=== PATIENT | female | born 1935 | race Caucasian/White ===

== ENCOUNTER 2016-07-06 01:43 | Inpatient (IN) | payer OTHER, MEDICARE ==
[~2016-07-06] VITALS: Ht 142.2 cm; Wt 62.6 kg
[~2016-07-06 01:43] MED LIST: BRISDELLE7.5 M1 PO; CALCIUM 500 +1 EAC5 PO; CARVEDILOL12.5 M1 PO; CO Q-10100 MG PO; CRESTOR40 M2 PO; IBUPROFEN600 M1 PO; LASIX20 M1 PO; MECLIZINE HCL25 MG PO; MIRALAX17 G1 PO; NASONEX17 GM NAS; NEXIUM40 M1 PO; NORVASC5 M1 PO; POTASSIUM CHLO20 ME2 PO; TAMOXIFEN CITRA20 M1 PO; VITAMIN D400 UNIT PO
--- NOTE | 2016-07-06 10:48 | RADIOLOGY REPORT ---
EXAMINATION: XR LUMBAR SPINE CLINICAL INFORMATION: Localization of L3-L4 and L4-L5 and OR. COMPARISON: Lumbar spine films dated 03/30/2016. TECHNIQUE: Lateral views of the lumbar spine were performed in the operating room. FINDINGS: Film 1 demonstrates a surgical marker pointing to the superior margin of the L3 spinous process. Film 2 demonstrates a surgical instrument projecting over the L3-L4 facet joint. IMPRESSION: Localization of the L3 and L3-L4 level. No images demonstrate localization of L4-L5.
--- NOTE | 2016-07-06 13:20 | Operative Report ---
Operative/Inv Procedure Report Surgery Date: 07/06/16 Name of Procedure: Resection of L45 synovial cyst. L3 L4 L5 far lateral laminectomies, L3 L4 L5 bilateral osteotomies, L3 4 TLIF, L4 5 TLIF. Insertion of L3 4 interbody 4 web cage titanium. Insertion of L4 5 4 web Cage titanium. L3 4 L4 5 posterior lateral arthrodesis utilizing autologous bone graft and Iliac crest graft aspirate. L3 4 L4 5 posterior lateral segmental instrumentation utilizing Synthes titanium screws and rods. Procedure performed stereotactically. Right iliac crest bone biopsy. Pre-Operative Diagnosis: L3 4 4 5 stenosis spondylosis spondylolisthesis. Post-Operative Diagnosis: Same Estimated Blood Loss: 400cc Surgeon/Customer Advisor Specialist: JAKOB IRVIN MD AND REINIER CHANG MD Anesthesia: general endotracheal tube Operative/Procedure Note Note: Patient was brought to the operating room and undergoing endotracheal intubation Martin catheterizations Venodyne's were placed both lower extremities. The patient was placed on a Marcelo frame prone all bony prominences well-padded. Back was kept flat. The back was washed with Betadine solution and Betadine soap and draped in usual sterile fashion. X-ray was for localization. An incision was made in the midline and developed down through the length subcutaneous teeniest tissues the paraspinal muscles were then mobilized out laterally to the level of the transverse processes exposing the L3-L4 and L5 spinous processes completely the paraspinal muscles were mobilized out laterally to the level of the transverse processes now beyond the lateral masses again exposing the L3 through L5 transverse processes x-ray was used for confirmation. Working with a Misonix bone scalpel the lamina were removed at L3-L4 and L5 bilaterally including the pars and complete foraminotomies were now made, including osteotomies bilaterally at L3 4 and L4 5. Synovial cyst was away and resected at L4 5's on the right side. Having decompressed the ligamentum flavum was now lifted and completely unroofed off the dura both superiorly medially and laterally freeing up the nerve roots at the L3-L4 and the L5 level. The bone was harvested morcellized and later use in the arthrodesis for the most through separate fascial incision the right iliac crest graft was accessed and a bone biopsy was now performed utilizing a large bore needle which was sent off to pathology furthermore iliac crest graft aspirate was now removed and taken and mixed in with the autologous bone graft for later usage in the arthrodesis. At this point the disc space was entered with an 11 blade and removed with a combination of straight and curved curettes at both L3 4 and L4 5 level. The cartilaginous endplates were removed at L3 4 L4 5. The bony endplates were now partially decorticated at both levels. Morselized bone was now used to fill in the space at L3 4 and L4 5 and pack in autologous bone graft . At L3 4 level a 4-Web titanium cage was centrally filled with autologous bone graft and tapped across the midline. At the L4 5 level a similar titanium cage 10mm in height was tapped into the interspace across the midline. At this point the transverse processes were decorticated bilaterally and autologous bone graft was packed posterolaterally. He was accomplished at the O arm was brought into position and the stereotactic coordinates were obtained. Under stereotactic guidance the L3-L4 and the L5 pedicles were accessed utilizing Synthes titanium screws 45 mm in length at L3 and 40 mm in length at L4 and L5 bilaterally 6.5 mm diameter. The polyaxial screws axial screws were now checked for the elective physiological potential and found to stimulate above 30 mA. At this 0.2 rods were used to connect the polyaxial screws under compression. Copious amounts of irrigation were used a large round drain was then removed through separate stab incision superiorly and secured to the skin. Vancomycin powder was was used to sprinkled across the wound. A piece of DuraGen was placed epidurally to the patient's very thinned out dura but no CSF leakage was observed. The paraspinal muscles and fascia were reapproximated utilizing 0 Vicryls, inverted 3-0 Vicryl subcutaneous teeniest tissues and francisca for the skin. Patient was taken extubated to recovery room having tolerated procedure well.
--- NOTE | 2016-07-06 13:24 | Operative Report ---
Operative/Inv Procedure Report Surgery Date: 07/06/16 Name of Procedure: 1. Bilateral L3, L4 pars osteotomies for correction of deformity 2. Left L3 4, L4 5 far lateral discectomies 3. L3 4, L4 5 transforaminal lumbar interbody fusion with titanium for web interbody cage, autograft 4. Nonsegmental L3-L5 posterior lateral arthrodesis with Synthes Expedia pedicle screws and rods, autograft, master graft 5. O arm neuro navigation 6. Intraoperative Right iliac crest bone marrow biopsy per hematology oncology request 7. Right iliac crest bone marrow aspiration 8. Resection of L4 5 synovial cyst Pre-Operative Diagnosis: L3 4, L4 5 spondylolisthesis with stenosis Post-Operative Diagnosis: Same Estimated Blood Loss: 650cc Surgeon/Table Games Shift Manager: BERNARDO MARIN,Lon Gardiner M.D. Anesthesia: general endotracheal tube Monitors: Neurophysiologic monitoring IV Fluids: 2 L crystalloid Implants: Synthes titanium with interbody cages, Expedia pedicle screws and rods Urine Output: 150 mL Drains: Medium NORAH Specimens: L3 4, L4 5 disc material, L4 5 juxta facet cyst Right iliac crest bone marrow aspirate and biopsy Complications: None Condition: Stable Operative Indication: Patient is an 81-year-old woman who presents with intractable lumbar claudication, left more than right, despite a prolonged course of nonoperative care. Imaging identifies multilevel lumbar degenerative disc disease with a unstable L3 4, L4 5 spondylolisthesis associated with a high grade spinal stenosis. Her failure to respond to nonoperative treatment, she now presents for operative decompression and instrumented fusion. The operative workup identified borderline thrombocytopenia and she underwent a Martin hematology workup preoperatively. This was unrevealing. However, the treating satellite installation technician requested that an intraoperative iliac crest bone marrow aspirate and biopsy be obtained to further evaluate her hematologic condition. Patient was felt to be stable to proceed with surgery with a platelet count exceeding 100,000. All risks benefits and alternatives were discussed with the patient detail. Brown elected to proceed. Written operative consent was obtained. Operative/Procedure Note Note: Patient was taken the operating room. Appropriate patient identification and surgical timeout, the patient underwent the smooth induction of general endotracheal anesthesia without incident. Neurophysiologic monitoring was placed and baseline recordings were obtained. A Martin catheter was sterilely inserted. DVT prophylaxis was utilized throughout the case. Patient was given 1 g of IV vancomycin preoperative prophylaxis. With all tubes and lines secured , the patient was carefully turned to prone position on the Marcelo frame taking care to ensure that all pressure points well-padded. Lumbar region low back was widely prepped and draped usual sterile fashion using povidone iodine solution. A vertical midline skin incision marked and infiltrated with local anesthetic. A small gauge spinal needle was placed superficially in midline and a localizing x-ray was obtained to confirm the needle to direct the L3 pedicle level. Skin incision was made with a 10 blade knife. Dissection was carried down through subcutaneous tissue with the Bovie to the lumbodorsal fascia. Fascia was incised in the midline and a subperiosteal dissection was performed bilaterally exposing underlying spinous processes lamina and facet joints. A [place] elevator was placed at the presumed level of the L3 pars and intraoperative lateral x-rays obtained to confirm this to be the correct level. We then proceeded to expose the transverse processes of L3, L4, and L5 bilaterally and they were decorticated with a high-speed drill. With exposure complete, we proceeded with the decompression. Bilateral pars osteotomies were performed of L3 and L4 bilaterally using combination of the bone scalpel and Kerrison rongeurs exposing and skeletonizing the pedicles of L3 , L4, and L5 bilaterally. The exiting traversing roots of L3, L4, and L5 were widely decompressed bilaterally. A juxta facet cyst at L4 5 was resected and passed off as specimen. We made a stab incision over the right posterior iliac crest. Using a Jamshidi needle, 5 mL of bone marrow aspirate was collected. 1 mL was placed in each of to purple topped tubes and a green topped tube with sodium heparin and sent to pathology. We then took a core biopsy of the iliac crest which was sent in formalin as requested by the hematology service and also sent to pathology. An additional 10 mL of iliac crest bone marrow aspirate was collected be the Jamshidi to add to our morcellated autograft for the arthrodesis. We then focused our attention to the discectomy and placement of the interbody cages. 5 lateral discectomies were performed via the left-sided L3 4 and L4 5 using disc space serg and rasps until all the cartilaginous endplate was removed. Focused our attention first L4 5, after appropriate trials, a 10 x 26 mm 4 web titanium cage was selected. Morcellated autograft from the decompression was packed into the anterior disc space. The cage was also filled with morcellated autograft and gently impacted into the L4 5 disc space under direct visualization and countersunk by approximately 2-3 mm while protecting the dural elements. Monitoring was stable. An analogous fashion, a second 10 x 26 mm 4 web titanium cage was selected for L3 4. Morcellated autograft was packed into the anterior disc space and into the cage and the cage was gently impacted into the L3 4 disc space under direct observation while protecting the neural elements and countersunk by approximately 3-4 mm. Each cage was slightly medial and visual inspection showed them to be in excellent position. We then focused our attention to placement of the posterior lateral instrumentation. Morcellated autograft was packed over the transverse processes from L3 to L5 bilaterally and further compacted with 6 mL of master graft on both sides. The O arm reference arc was placed into the right posterior iliac crest through a stab incision and the O arm was brought into play. AP and lateral reference x-rays were obtained followed by a spin of the O arm. The O arm reconstructions were confirmed. Navigation, we then selected entry points for pedicle screws bilaterally at L3, L4, and L5 at the junction of the pars interarticularis transverse process and inferior aspect of the rostral facet. Starting holes were made with the drill. The pedicles were traversed with a gearshift. The holes were sounded with a ball-tipped probe, tapped, and screws were then placed. At L3, 6.5 x 45 mm Synthes expedient screws were placed bilaterally. At L4 and L5, 6.5 x 40 mm screws were placed bilaterally. Once all screws were in position, they were stimulated with thresholds greater than 40 mA at all 6 locations. With all the screws in position, the O arm was brought back into play and a second spin was obtained and confirmed excellent position of all the hardware. The decompression was also noted to be excellent. 65 mm titanium rods were then top loaded into the screws and locking caps placed. These were finally tightened with an antitorque device. The wound was inspected. A tiny 1 mm dural laceration was noted over the dorsal aspect of the thecal sac at approximately of the L3 [address] level[address] We elected to place a 6-0 Prolene suture to secure it. This was further covered with a small pledget of DuraGen and Tisseel. We then began wound closure. The wound was irrigated. 1 g of IV vancomycin powder was placed on the exposed cut muscle and soft tissue surfaces. 10 mL of long-acting Marcaine was instilled into the paraspinal muscle for postoperative analgesia and then wound closure begun. A medium NORAH drain was placed into the wound and secured to the skin with a 2-0 nylon suture. The deep muscle was reapproximated interrupted 0 Vicryl suture. The lumbar dorsal fascia was reapproximated with interrupted 0 Vicryl suture. The subcutaneous tissue was closed in layers with interrupted 2-0 Vicryl suture and the skin was closed with francisca. Wounds clean and dried. Bacitracin and a sterile consent dressing was placed. The patient was returned to the supine position, awakened extubated and taken to PACU in stable condition. She was noted to be moving all 4 extremities at the completion of the case. All sponge, needle, and instrument counts were correct at the completion of procedure 3. Neurophysiologic monitoring was stable throughout the case.
--- NOTE | 2016-07-06 15:42 | RADIOLOGY REPORT ---
EXAMINATION: XR LUMBOSACRAL SPINE CLINICAL INFORMATION: L3-L4 and L4-L5 spinal fusion. COMPARISON: Intraoperative radiographs of the lumbar spine from 07/06/2016. TECHNIQUE: Intraoperative axial CT imaging of the lumbar spine was performed. FLUOROSCOPY TIME: 9.65 sec. FLUOROSCOPY DOSE: 373 Rcm2. FINDINGS: The intraoperative CT images demonstrate a midline wound of the lower back, L3 and L4 laminectomy defects, posterolateral bone graft placement, and appropriately positioned interbody cages at L3-L4 and L4-L5. 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 IMPRESSION: Intraoperative CT imaging performed at the time of L4-L5 and L5-S1 fusion.
--- NOTE | 2016-07-06 15:52 | PN- Neurosurgical ---
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 No Antibiotics Is Patient on Antibiotics? Yes If Yes: prophylaxis
--- NOTE | 2016-07-06 15:59 | Admission Core Measures ---
Admission Lab Results I reviewed the following labs: Laboratory Tests 07/06 1130 Miscellaneous Leukemic Chromosome Anal Pending Flow Cytometry Specimen Pending Admission Meds I reviewed the following Meds: Current Medications Sig/Shauna Start time Last Medication Dose Stop Time Status Admin Acetaminophen 650 MG Q4P PRN 07/06 1515 AC (Tylenol) Amlodipine Besylate 5 MG BID 07/06 2200 UNVr (Norvasc) Atorvastatin Calcium 80 MG 1700 07/06 1700 UNVr (Lipitor) Bisacodyl 10 MG DAILY PRN 07/06 1515 AC (Dulcolax Supp) Carvedilol 12.5 MG BID 07/06 2200 UNVr (Coreg) Docusate Sodium 100 MG TID 07/06 1600 AC (Colace) Furosemide 20 MG DAILY 07/07 1000 UNVr (Lasix) Heparin Sodium 5,000 UNIT Q8 07/07 0600 AC (Porcine) Hydromorphone HCl 50 MG Q24H PRN 07/06 1415 AC (Dilaudid) Sodium Chloride 45 ML (Normal Saline 50ML Bag) Omeprazole 40 MG DAILY AC 07/07 0700 UNVr (Prilosec) Ondansetron HCl 4 MG Q6P PRN 07/06 1515 AC (Zofran) Oxycodone/ 2 TAB Q4P PRN 07/07 0800 AC Acetaminophen (Percocet) Paroxetine HCl 10 MG 0800 07/07 0800 UNVr (Paxil) Polyethylene Glycol 17 GM DAILY 07/07 1000 UNVr (Miralax) Potassium Chloride 20 MEQ DAILY 07/07 1000 UNVr (K-Dur) Senna 374 MG AT BEDTIME NEED.. 07/06 1515 AC (Senokot) Sodium Chloride 1,000 ML Q12H 07/06 1515 AC (Normal Saline 0.9%) 07/07 1514 Tamoxifen Citrate 10 MG DAILY 07/07 1000 UNVr (Nolvadex 10MG Tab) Vancomycin HCl 1,000 MG ONCE 07/06 0000 NR Sodium Chloride 250 ML 07/06 2359 (Normal Saline 0.9%) Zolpidem Tartrate 2.5 MG AT BEDTIME NEED.. 07/06 1515 AC (Ambien) Acute Coronary Syndrome Inclusion Criteria ACS Diagnosis No Inpatient Core Measures LDL Reminder: If No, please order W/I first 24hr of stay Congestive Heart Failure Inclusion Criteria CHF Diagnosis No Cerebrovascular accident Inclusion Criteria CVA/TIA Diagnosis No Inpatient Core Measures Bedside Swallow Eval Reminder: If BSE failed, place ST order Antithrombotic Reminder: Order Antithrombotic Medication by end of day 2 Antithrombotic Reminder: Document Reason Antithrombotic Not ordered by end of day 2 AFIB/Flutter Reminder: If Present, add to problem list AFIB/Flutter Reminder: Order Anticoag Medication for pts with AFIB/Flutter Atherosclerosis Reminder: If Present, add to problem list LDL Reminder: If No, please order W/I first 24hr of stay PT Order Reminder: If No, please order Venous thromboembolism Inpatient Core Measures VTE Risk Factors: Age > 40 VTE Prophylaxis Ordered Inpt Mech & Pharm No Mech VTE prophylaxis d/t No contraindications No VTE Pharm Prophylaxis d/t No contraindications Inclusion Criteria - Per Current guidelines, there needs to be overlap - treatment for the first 5 days of Warfarin therapy. - Parenteral Anticoagulation (IV or SC) needs to be - given along with Warfarin therapy. VTE Diagnosis No VTE Type NONE VTE Confirmed by (Test) NONE Problem List As ranked by this Provider includes Assessment & Plan 1. Spinal stenosis HOME MEDS Home Med List Amlodipine Besylate (Norvasc) 5 MG TABLET 1 TAB PO BID BP (Reported) Calcium Carbonate/Vitamin D3 (Calcium 500 + D Tablet) 500 MG-400 TABLET 1 TAB PO DAILY SUPPLEMENT (Reported) Carvedilol 12.5 MG TABLET 1 TAB PO BID HEART/BP (Reported) Ergocalciferol (Vitamin D2) (Vitamin D) 400 UNIT TABLET 1 TAB PO DAILY SUPPLEMENT (Reported) Esomeprazole (Nexium) 40 MG CAPSULE.DR 1 CAP PO DAILY GI (Reported) Furosemide (Lasix) 20 MG TABLET 1 TAB PO DAILY EDEMA (Reported) Ibuprofen 600 MG TABLET 1 TAB PO TID PAIN/INFLAMMATION (Reported) Mometasone Furoate (Nasonex) 50 MCG SPRAY.PUMP (Unknown Dose) ADAM AD PRN NASAL CONGESTION (Reported) Paroxetine Mesylate (Brisdelle) 7.5 MG CAPSULE 1 CAP PO DAILY HOT FLASHES ( Reported) Polyethylene Glycol 3350 (Miralax) 17 GRAM POWD.PACK 1 PAC PO DAILY PRN GI ( Reported) Potassium Chloride 20 MEQ TAB.ER.PRT 1 TAB PO DAILY SUPPLEMENT (Reported) Rosuvastatin Calcium (Crestor) 40 MG TABLET 1 TAB PO QPM CHOLESTEROL ( Reported) Tamoxifen Citrate 20 MG TABLET 1 TAB PO DAILY CANCER (Reported) Ubidecarenone (Co Q-10) (Unknown Strength) CAPSULE 1 CAP PO DAILY SUPPLEMENT (Reported)
[2016-07-06 16:30] VITALS: BP 130/55
[2016-07-06 20:00] VITALS: BP 152/70
--- NOTE | 2016-07-06 20:43 | NUR ---
@1999 PT C/O MIDSTERNAL CHEST PAIN 11/04, PT STATES JUST HAD SOME COFFEE, IT IS NOT CONSTANT BUT COMES AND GOES. 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 NOTIFIED SURGICAL PA ALIRIO HICKMAN #[id number], EKG AND LABS DRAWN. PRILOSEC ORDERED AND AWAITING FROM PHARMACY. WILL CONTINUE TO MONITOR.
[2016-07-06 21:06] LABS: ABSOLUTE BASOPHIL COUNT 0 /CUMM (0.0-0.2); ABSOLUTE EOSINOPHIL COUNT 0 /CUMM (0.0-0.7); ABSOLUTE LYMPH COUNT 0.9 /CUMM (1.2-3.4); ABSOLUTE MONOCYTE COUNT 0.6 /CUMM (0.10-0.60); BASOPHIL % 0 % (0.0-2.0); EOSINOPHIL % 0.1 % (0-5); HEMATOCRIT 36.2 % (37-47); MEAN CORPUSCULAR HGB 30.7 PG (27.0-31.0); MEAN CORPUSCULAR HGB CONC 33.3 G/DL (33.0-37.0); MEAN PLATELET VOLUME 11.2 FL (7.4-10.4); RBC DISTRIBUTION WIDTH 14.3 % (11.5-14.5); RED BLOOD CELL CT 3.93 /CUMM (4.20-5.40); WHITE BLOOD CELL COUNT 14.5 /CUMM (4.8-10.8)
[2016-07-06 21:11] LABS: PLATELET COUNT 101 /CUMM (130-400)
[2016-07-06 21:17] LABS: GRANULOCYTE % 89.8 % (42.2-75.2)
[2016-07-06 22:00] VITALS: BP 148/68
[2016-07-07 00:14] VITALS: BP 142/70
--- NOTE | 2016-07-07 06:25 | PN- Neurosurgical ---
Subjective Subjective: Awake, alert no complaints overnight Pain well controlled, no nausea, tolerating liquids Has not been out of bed yet Objective Vital Signs and I&Os Vital Signs Date Time Temp Pulse Resp B/P Pulse O2 O2 Flow FiO2 Ox Delivery Rate 07/07 0014 97.5 80 18 142/70 96 Nasal 2.0L Cannula 07/07 0000 96 Nasal 2.0L Cannula 07/06 2200 84 20 148/68 07/06 2157 84 148/68 07/06 2156 84 148/68 07/06 1999 96.7 60 20 152/70 07/06 1999 98 Nasal 2.0L Cannula 07/06 1999 96.7 60 20 152/70 98 Nasal 2.0L Cannula 07/06 1630 96 Nasal 2.0L Cannula 07/06 1630 97.6 54 16 130/55 96 Nasal 2.0L Cannula Intake & Output 07/07 0800 07/07 0000 07/06 1600 07/06 0800 07/06 0000 07/05 1600 Intake Total 1046 Output Total 60 555 Balance -60 491 Intake, IV 566 Intake, Oral 480 Number 0 Bowel Movements Output, 60 155 Drainage Output, Urine 400 Patient 138 lb Weight Physical Exam: vss, afebrile any: serosang - 60cc overnight General: alert and oriented times three Chest: clear bilaterally, RRR Abd: soft, good bs Ext: warm, no edema, positive sensate Neuro: FROM with good 5/5 LATONIA all 4 ext, no facial droop, tongue protrudes in midline Wound: dressed, dry Assessment/Plan Assessment/Plan 81 yo female s/p lum peralta pod 1 Plan for oob with brace today - pt has brace in the room 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 No (dc this morning) Venous Thromboembolism VTE Risk Factors: Age > 40, Surgery VTE Contraindications: No Contraindications VTE Prophylaxis Ordered Inpt: Mech & Pharm VTE Diagnosis: No VTE Type: NONE VTE Confirmed by (Test): NONE Beta Ulices Is Beta Ulices a Home Med? No Antibiotics Is Patient on Antibiotics? Yes If Yes: prophylaxis
--- NOTE | 2016-07-07 07:32 | PN- Neurosurgical ---
Subjective Subjective: Pt c/o incisional LBP, no other complaints Review of Systems: borderline thrombocytopenia Objective Vital Signs and I&Os Vital Signs Date Time Temp Pulse Resp B/P Pulse O2 O2 Flow FiO2 Ox Delivery Rate 07/07 001 97.5 80 18 142/70 96 Nasal 2.0L Cannula 07/07 96 Nasal 2.0L Cannula 07/060 84 20 148/68 07/06 2156 84 148/68 07/06 2155 84 148/68 07/06 1999 96.7 60 20 152/70 07/06 1999 98 Nasal 2.0L Cannula 07/06 1999 96.7 60 20 152/70 98 Nasal 2.0L Cannula 07/06 1629 96 Nasal 2.0L Cannula 07/06 163 97.6 54 16 130/55 96 Nasal 2.0L Cannula Intake & Output 07/07 0800 07/07 0000 07/06 1600 07/06 0800 07/06 0000 07/05 1600 Intake Total 915 1046 Output Total 545 555 Balance 370 491 Intake, IV 675 566 Intake, Oral 240 480 Number 0 0 Bowel Movements Output, 95 155 Drainage Output, Urine 450 400 Patient 62.596 kg Weight Physical Exam: Pt is awake and alert AF, VSS NORAH with 95cc serosanguinous dc last shift incision is c,d,i flat neuro exam is normal bilat LE sanches in place, [employer]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, no LE edema Current Medications: Current Medications Sig/Shauna Start time Last Medication Dose Route Stop Time Status Admin Acetaminophen 650 MG Q4P PRN 07/06 1515 AC PO Amlodipine Besylate 5 MG BID 07/060 AC 07/06 PO 2156 Atorvastatin Calcium 80 MG 1700 07/06 1700 AC 07/06 PO 1832 Bisacodyl 10 MG DAILY PRN 07/06 1515 AC CO Carvedilol 12.5 MG BID 07/06 2200 AC 07/06 PO 2157 Dexamethasone 4 MG .STK-MED ONE 07/06 726 DC IM 07/06 727 Docusate Sodium 100 MG TID 07/06 1600 AC 07/06 PO 2153 Fentanyl Citrate 250 MCG .STK-MED ONE 07/06 725 DC IM 07/06 726 Furosemide 20 MG DAILY 07/07 1000 AC PO Heparin Sodium 5,000 UNIT Q8 07/07 06 AC (Porcine) SC Hydromorphone HCl 50 MG Q24H PRN 07/06 1415 AC Sodium Chloride 45 ML IV Hydromorphone HCl 2 MG .STK-MED ONE 07/06 1415 DC IM 07/06 1416 Ketorolac 15 MG Q6P PRN 07/06 1800 AC Tromethamine IV Omeprazole 40 MG DAILY AC 07/07 0700 AC PO Omeprazole 40 MG ONE TIME ONE 07/06 1999 DC 07/06 PO 07/06 2000 215 Ondansetron HCl 4 MG Q6P PRN 07/06 1515 AC IV Oxycodone/ 2 TAB Q4P PRN 07/07 0800 AC Acetaminophen PO Paroxetine HCl 10 MG 0800 07/07 0800 AC PO Polyethylene Glycol 17 GM DAILY 07/07 1000 AC PO Potassium Chloride 20 MEQ DAILY 07/07 1000 AC PO Remifentanil 5 MG .STK-MED ONE 07/06 0726 DC IV 07/06 0727 Senna 374 MG AT BEDTIME NEED.. 07/06 1515 AC PO Sodium Chloride 1,000 ML Q12H 07/06 1515 AC 07/07 IV 07/07 1514 0316 Tamoxifen Citrate 10 MG DAILY 07/07 1000 AC PO Vancomycin HCl 1,000 MG Q12H 07/06 1999 AC 07/06 Sodium Chloride 250 ML IV 07/08 0859 2001 Vancomycin HCl 1,000 MG ONCE 07/06 0000 DC Sodium Chloride 250 ML IV 07/06 2359 Zolpidem Tartrate 2.5 MG AT BEDTIME NEED.. 07/06 1515 AC PO Results Last 48 Hours of Labs: Laboratory Tests 07/06 07/06 2025 1130 Chemistry Sodium (137 - 145 mmol/L) 138 Potassium (3.5 - 5.1 mmol/L) 4.1 Chloride (98 - 107 mmol/L) 102 Carbon Dioxide (22 - 30 mmol/L) 26 Anion Gap (5 - 16) 10 BUN (7 - 17 mg/dL) 16 Creatinine (0.5 - 1.0 mg/dL) 0.7 Estimated GFR (>60 ml/min) > 60 BUN/Creatinine Ratio (7 - 25 %) 22.9 Troponin I (< 0.11 ng/ml) 0.02 Hematology CBC w Diff NO MAN DIFF REQ WBC (4.8 - 10.8 /CUMM) 14.5 H RBC (4.20 - 5.40 /CUMM) 3.93 L Hgb (12.0 - 16.0 G/DL) 12.1 Hct (37 - 47 %) 36.2 L MCV (81.0 - 99.0 FL) 92.0 MCH (27.0 - 31.0 PG) 30.7 RDW (11.5 - 14.5 %) 14.3 Plt Count (130 - 400 /CUMM) 101 L MPV (7.4 - 10.4 FL) 11.2 H Gran % (42.2 - 75.2 %) 89.8 H Lymphocytes % (20.5 - 51.1 %) 5.9 L Monocytes % (1.7 - 9.3 %) 4.2 Eosinophils % (0 - 5 %) 0.1 Basophils % (0.0 - 2.0 %) 0 L Absolute Granulocytes (1.4 - 6.5 /CUMM) 13.0 H Absolute Lymphocytes (1.2 - 3.4 /CUMM) 0.9 L Absolute Monocytes (0.10 - 0.60 /CUMM) 0.6 Absolute Eosinophils (0.0 - 0.7 /CUMM) 0 Absolute Basophils (0.0 - 0.2 /CUMM) 0 PUBS MCHC (33.0 - 37.0 G/DL) 33.3 Miscellaneous Leukemic Chromosome Anal Pending Flow Cytometry Specimen Pending Assessment/Plan Assessment/Plan Pt POD1 s/p L3-5 decompression and fusion and stable. Remains mildly thrombocytopenic but no evidence abnl bleeding, drain output typical Plan: -OOB with brace -ADAT, HLIV when taking po -DVT prophylaxis -cont NORAH until less than 50cc per shift, vanco until drain out -IS to bedside, use 10x per hr -dc sanches -off [employer] WORKER as soon as taking po -to floor heidi -repeat CBCP in am tomorrow Core Measures/Miscellaneous Sanches Catheter Date In: 07/06/16 Venous Thromboembolism VTE Risk Factors: Age > 40, Surgery VTE Contraindications: No Contraindications VTE Prophylaxis Ordered Inpt: Mech & Pharm VTE Diagnosis: No VTE Type: NONE VTE Confirmed by (Test): NONE Beta Ulices Is Beta Ulices a Home Med? No Antibiotics Is Patient on Antibiotics? Yes If Yes: prophylaxis
[2016-07-07 08:00] VITALS: BP 140/74
[2016-07-07 16:00] VITALS: BP 116/68
[2016-07-07 20:00] VITALS: BP 102/50
--- NOTE | 2016-07-07 20:03 | NUR ---
PT OOB AMBULATED TO TOILET WITH BACK BRACE WITHOUT DIFFICULTY, VOIDED 250ML OF CLEAR LIGHT ALVINO IN COLOR. INITITATED A WALK AROUND UNIT BUT PT BECAME NAUSEATED AND VOMITED SMALL AMOUNT OF UNDIGESTED APPLESAUCE AND TUNAFISH. PT FELT BETTER AFTER, PT RETURNED BACK TO BED AND TEETH BRUSHED.
[2016-07-08] VITALS: BP 122/60
--- NOTE | 2016-07-08 05:06 | PN- Neurosurgical ---
Subjective Subjective: Patient reporting no acute overnight events. Is beginning to feel incisional discomfort. Is requesting pain medication. Also complains of nasal congestion, initial onset approximately 4 days ago. Denies chest pain and chest congestion. Denies shortness of breath and difficulty breathing. Presently is without complaints of nausea and vomitting. Objective Vital Signs and I&Os Vital Signs Date Time Temp Pulse Resp B/P Pulse O2 O2 Flow FiO2 Ox Delivery Rate 07/08 95 Nasal 1.0L Cannula 07/07 2140 60 118/52 07/07 2139 60 118/52 07/07 1999 95 Nasal 1.0L Cannula 07/07 1999 97.4 52 16 102/50 95 Nasal 1.0L Cannula 07/07 1599 97.6 58 20 116/68 95 Room Air 07/07 08 98.5 88 18 140/74 07/07 08 98.5 88 140/74 07/07 08 98 Nasal 2.0L Cannula 07/07 799 98.5 88 20 140/74 95 Nasal 2.0L Cannula Intake & Output 07/08 0807/08 0000 07/07 1600 07/07 0807/07 0000 07/06 1600 Intake Total 510 8653 631 9201 Output Total 290 760 545 555 Balance 220 680 370 491 Intake, IV 270 640 675 566 Intake, Oral 240 800 240 480 Number 0 0 0 Bowel Movements Output, 40 60 95 155 Drainage Output, Urine 250 700 450 400 Patient 138 lb Weight Physical Exam: General: Alert and oriented x3, no acute distress Cardiac: RRR, s1s2 Pulmonary: Bilateral lung sounds clear to auscultation Abdomen: Non-tender, non-distended, +bs Extremities: Moves all extremities, distal sensations intact. Motor strength 5 /5 bilaterally in plantar and dorsi flexion and straight leg raise. Skin warm and well perfused. DP pulses palpable bilaterally. Bilateral calves soft and non-tender. ALPS in place Surgical site: Low back, island dressing clean dry and intact, any holding suction with 50 cc serosanguinous drainage. Assessment/Plan Assessment/Plan -OOB with brace -PT eval/tx -DVT prophylaxis -flonase and guaifenesin for congestion -cont ANY until less than 50cc per shift, vanco until drain out -IS to bedside, use 10x per hr -to floor heidi, order placed 24 hours ago for transfer -follow up CBC in am today -disp planning: Patient interested in d/c to home, will d/w Dr. Medina Core Measures/Miscellaneous Martin Catheter Date In: 07/06/16 Venous Thromboembolism VTE Risk Factors: Age > 40, Surgery VTE Contraindications: No Contraindications VTE Prophylaxis Ordered Inpt: Mech & Pharm VTE Diagnosis: No VTE Type: NONE VTE Confirmed by (Test): NONE Beta Ulices Is Beta Ulices a Home Med? No Antibiotics Is Patient on Antibiotics? Yes If Yes: prophylaxis
[2016-07-08 05:50] LABS: ABSOLUTE BASOPHIL COUNT 0 /CUMM (0.0-0.2); ABSOLUTE EOSINOPHIL COUNT 0.2 /CUMM (0.0-0.7); ABSOLUTE GRANULOCYTE CT 6.9 /CUMM (1.4-6.5); ABSOLUTE LYMPH COUNT 1.3 /CUMM (1.2-3.4); ABSOLUTE MONOCYTE COUNT 0.9 /CUMM (0.10-0.60); BASOPHIL % 0.2 % (0.0-2.0); EOSINOPHIL % 2.4 % (0-5); MEAN CORPUSCULAR HGB 30.8 PG (27.0-31.0); MEAN CORPUSCULAR HGB CONC 33.2 G/DL (33.0-37.0); MEAN CORPUSCULAR VOLUME 92.8 FL (81.0-99.0); MEAN PLATELET VOLUME 11.1 FL (7.4-10.4); PLATELET COUNT 77 /CUMM (130-400); RBC DISTRIBUTION WIDTH 14.9 % (11.5-14.5); RED BLOOD CELL CT 3.12 /CUMM (4.20-5.40); WHITE BLOOD CELL COUNT 9.3 /CUMM (4.8-10.8)
[2016-07-08 08:00] VITALS: BP 132/64
--- NOTE | 2016-07-08 08:46 | PN- Neurosurgical ---
Subjective Subjective: Reports nasal congestion, LBP improved. Was OOB yest on unit. adali po. Objective Vital Signs and I&Os Vital Signs Date Time Temp Pulse Resp B/P Pulse O2 O2 Flow FiO2 Ox Delivery Rate 07/08 95 Nasal 1.0L Cannula 07/08 98.1 88 22 122/60 95 Nasal 1.0L Cannula 07/071 60 118/52 07/07 2140 60 118/52 07/07 1999 95 Nasal 1.0L Cannula 07/07 1999 97.4 52 16 102/50 95 Nasal 1.0L Cannula 07/07 1599 97.6 58 20 116/68 95 Room Air Intake & Output 07/08 1600 07/08 0800 07/08 0000 07/07 1600 07/07 0807/07 0000 Intake Total 987 791 9751 915 1046 Output Total 480 290 760 545 555 Balance -280 220 680 370 491 Intake, IV 270 640 675 566 Intake, Oral 200 240 800 240 480 Number 0 0 0 Bowel Movements Output, 80 40 60 95 155 Drainage Output, Urine 400 250 700 450 400 Patient 62.596 kg Weight Physical Exam: Pt AF, VSS Neuro intaact NORAH with 80, 40cc last 2 shifts serosanguinous OOB yest voiding on own adali po Current Medications: Current Medications Sig/Shauna Start time Last Medication Dose Route Stop Time Status Admin Acetaminophen 650 MG Q4P PRN 07/06 1515 AC PO Amlodipine Besylate 5 MG BID 07/060 AC 07/07 PO 2140 Atorvastatin Calcium 80 MG 1700 07/06 1700 AC 07/07 PO 1726 Bisacodyl 10 MG DAILY PRN 07/06 1515 AC AR Carvedilol 12.5 MG BID 07/06 2200 AC 07/07 PO 2141 Docusate Sodium 100 MG TID 07/06 1600 AC 07/07 PO 2141 Famotidine 20 MG ONCE ONE 07/08 0130 DC 07/08 IV 07/08 013 0154 Fluticasone 2 SPRAY DAILY NEEDED PRN 07/08 0500 AC Propionate ADAM Furosemide 20 MG DAILY 07/07 1000 AC 07/07 PO 0822 Guaifenesin 10 ML Q4P PRN 07/08 0500 AC PO Heparin Sodium 5,000 UNIT Q8 07/07 0600 AC 07/08 (Porcine) SC 0612 Hydromorphone HCl 50 MG Q24H PRN 07/06 1415 AC Sodium Chloride 45 ML IV Ketorolac 15 MG Q6P PRN 07/06 1800 AC 07/07 Tromethamine IV 1843 Omeprazole 40 MG DAILY AC 07/07 0700 AC 07/08 PO 0612 Ondansetron HCl 4 MG Q6P PRN 07/06 1515 AC IV Oxycodone/ 1 TAB Q4P PRN 07/08 0445 AC 07/08 Acetaminophen PO 0459 Oxycodone/ 2 TAB Q4P PRN 07/07 0800 AC 07/07 Acetaminophen PO 1454 Paroxetine HCl 10 MG 0807/07 0800 AC 07/08 PO 0821 Polyethylene Glycol 17 GM DAILY 07/07 1000 AC 07/07 PO 0821 Potassium Chloride 20 MEQ DAILY 07/07 1000 AC 07/07 PO 0822 Senna 374 MG AT BEDTIME NEED.. 07/06 1515 AC PO Sodium Chloride 1,000 ML Q12H 07/06 1515 DC 07/07 IV 07/07 1514 0316 Tamoxifen Citrate 10 MG DAILY 07/07 1000 AC 07/07 PO 0823 Vancomycin HCl 1,000 MG Q12H 07/06 2000 AC 07/08 Sodium Chloride 250 ML IV 07/08 0859 0821 Zolpidem Tartrate 2.5 MG AT BEDTIME NEED.. 07/06 151 AC PO Results Last 48 Hours of Labs: Laboratory Tests 07/08 07/06 0500 2024 Chemistry Sodium (137 - 145 mmol/L) 138 138 Potassium (3.5 - 5.1 mmol/L) 4.0 4.1 Chloride (98 - 107 mmol/L) 102 102 Carbon Dioxide (22 - 30 mmol/L) 28 26 Anion Gap (5 - 16) 8 10 BUN (7 - 17 mg/dL) 17 16 Creatinine (0.5 - 1.0 mg/dL) 0.8 0.7 Estimated GFR (>60 ml/min) > 60 > 60 BUN/Creatinine Ratio (7 - 25 %) 21.3 22.9 Troponin I (< 0.11 ng/ml) 0.02 Hematology CBC w Diff NO MAN DIFF REQ NO MAN DIFF REQ WBC (4.8 - 10.8 /CUMM) 9.3 14.5 H RBC (4.20 - 5.40 /CUMM) 3.12 L 3.93 L Hgb (12.0 - 16.0 G/DL) 9.6 L 12.1 Hct (37 - 47 %) 29.0 L 36.2 L MCV (81.0 - 99.0 FL) 92.8 92.0 MCH (27.0 - 31.0 PG) 30.8 30.7 RDW (11.5 - 14.5 %) 14.9 H 14.3 Plt Count (130 - 400 /CUMM) 77 L 101 L MPV (7.4 - 10.4 FL) 11.1 H 11.2 H Gran % (42.2 - 75.2 %) 74.0 89.8 H Lymphocytes % (20.5 - 51.1 %) 13.8 L 5.9 L Monocytes % (1.7 - 9.3 %) 9.6 H 4.2 Eosinophils % (0 - 5 %) 2.4 0.1 Basophils % (0.0 - 2.0 %) 0.2 0 L Absolute Granulocytes (1.4 - 6.5 /CUMM) 6.9 H 13.0 H Absolute Lymphocytes (1.2 - 3.4 /CUMM) 1.3 0.9 L Absolute Monocytes (0.10 - 0.60 /CUMM) 0.9 H 0.6 Absolute Eosinophils (0.0 - 0.7 /CUMM) 0.2 0 Absolute Basophils (0.0 - 0.2 /CUMM) 0 0 PUBS MCHC (33.0 - 37.0 G/DL) 33.2 33.3 07/06 1130 Miscellaneous Leukemic Chromosome Anal Pending Flow Cytometry Specimen Pending Assessment/Plan Assessment/Plan Pt stable postop with worsening thrombocytopenia without active bleeding. Neurologically stable. Plan: hold sq heparin, pepcid give vit K x [address] late this afternoon, if less than 60,000, will need plt transfusion OOB w/ brace NORAH out when 50cc or less Core Measures/Miscellaneous Martin Catheter Date In: 07/06/16 Venous Thromboembolism VTE Risk Factors: Age > 40, Surgery VTE Contraindications: No Contraindications VTE Prophylaxis Ordered Inpt: Mech & Pharm VTE Diagnosis: No VTE Type: NONE VTE Confirmed by (Test): NONE Beta Ulices Is Beta Ulices a Home Med? No Antibiotics Is Patient on Antibiotics? Yes If Yes: prophylaxis Attending MD Review Statement Attending Statement Attending MD Statement: examined this patient, discuss w/resident/PA/TECHNICAL EDITOR, discussed w/nursing
[2016-07-08 16:00] VITALS: BP 125/55
[2016-07-08 16:31] LABS: ABSOLUTE BASOPHIL COUNT 0 /CUMM (0.0-0.2); ABSOLUTE EOSINOPHIL COUNT 0.3 /CUMM (0.0-0.7); ABSOLUTE GRANULOCYTE CT 4.9 /CUMM (1.4-6.5); ABSOLUTE LYMPH COUNT 1.1 /CUMM (1.2-3.4); ABSOLUTE MONOCYTE COUNT 0.8 /CUMM (0.10-0.60); BASOPHIL % 0.5 % (0.0-2.0); EOSINOPHIL % 3.9 % (0-5); GRANULOCYTE % 69.5 % (42.2-75.2); HEMATOCRIT 27.3 % (37-47); MEAN CORPUSCULAR HGB 31.1 PG (27.0-31.0); MEAN CORPUSCULAR HGB CONC 33.5 G/DL (33.0-37.0); MEAN PLATELET VOLUME 11.6 FL (7.4-10.4); PLATELET COUNT 78 /CUMM (130-400); RED BLOOD CELL CT 2.94 /CUMM (4.20-5.40)
[2016-07-09] VITALS: BP 130/60
--- NOTE | 2016-07-09 00:11 | NUR ---
PT AWAKE AND ALEERT, DENIES PAIN AT THIS TIME. MOVING ALL HER EXTREMETIES. BACK DRESSING DRY AND INTACT. NORAH X [address], SEROSANGUINOUS DRAINAGE NOTED.
[2016-07-09 05:39] LABS: ABSOLUTE BASOPHIL COUNT 0 /CUMM (0.0-0.2); ABSOLUTE EOSINOPHIL COUNT 0.4 /CUMM (0.0-0.7); ABSOLUTE GRANULOCYTE CT 4.6 /CUMM (1.4-6.5); ABSOLUTE LYMPH COUNT 1.5 /CUMM (1.2-3.4); ABSOLUTE MONOCYTE COUNT 0.8 /CUMM (0.10-0.60); BASOPHIL % 0.5 % (0.0-2.0); EOSINOPHIL % 4.8 % (0-5); GRANULOCYTE % 62.3 % (42.2-75.2); HEMATOCRIT 28.8 % (37-47); MEAN CORPUSCULAR HGB 31.1 PG (27.0-31.0); MEAN CORPUSCULAR HGB CONC 33.6 G/DL (33.0-37.0); MEAN CORPUSCULAR VOLUME 92.7 FL (81.0-99.0); MEAN PLATELET VOLUME 11.5 FL (7.4-10.4); PLATELET COUNT 77 /CUMM (130-400); RBC DISTRIBUTION WIDTH 14.6 % (11.5-14.5); WHITE BLOOD CELL COUNT 7.3 /CUMM (4.8-10.8)
--- NOTE | 2016-07-09 05:47 | PN- Neurosurgical ---
Subjective Subjective: DOING WELL THIS AM NO MAJOR COMPLAINTS PALLAVI CP, SOB, NO N+V WITH DIET AMBULATING OOB WITH BRACE TO BATHROOM CURRENTLY LAYING ON LEFT SIDE COMFORTALBLY Objective Vital Signs and I&Os Vital Signs Date Time Temp Pulse Resp B/P Pulse O2 O2 Flow FiO2 Ox Delivery Rate 07/09 0000 92 Room Air 07/09 98.4 64 20 130/60 92 Room Air 07/087 73 150/78 07/086 73 150/68 07/08 1600 92 Nasal 1.0L Cannula 07/08 1600 98.1 62 18 125/55 92 Nasal 1.0L Cannula 07/08 09 74 134/60 07/08 0929 76 134/60 07/08 799 98.6 71 20 132/64 92 Nasal 1.0L Cannula 07/08 799 92 Nasal 1.0L Cannula Intake & Output 07/09 0800 07/09 0000 07/08 1600 07/08 0800 07/08 0000 07/07 1600 Intake Total 340 670 204 714 9974 Output Total 450 850 480 290 760 Balance -110 -180 -280 220 680 Intake, IV 250 270 640 Intake, Oral 340 420 200 240 800 Number 0 Bowel Movements Output, 80 40 60 Drainage Output, Urine 450 850 400 250 700 Physical Exam: DRSG CHANGED WOUND C/D/I NO CELLULITIS PRESENT DISTAL CMS GROSSLY IN BILAT NO CALF TENDRNESS NORAH WITH 100CC OF SANGUINOUS DRAINAGE OVER 24 HOURS Assessment/Plan Assessment/Plan SURGICAL STABLE PLAN F/U AM PLTS CONT PLAN D/C HOME PER DR CHANG Core Measures/Miscellaneous Martin Catheter Date In: 07/06/16 Venous Thromboembolism VTE Risk Factors: Age > 40, Surgery VTE Contraindications: No Contraindications VTE Prophylaxis Ordered Inpt: Mech & Pharm VTE Diagnosis: No VTE Type: NONE VTE Confirmed by (Test): NONE Beta Ulices Is Beta Ulices a Home Med? No Antibiotics Is Patient on Antibiotics? Yes If Yes: prophylaxis
[2016-07-09] MEDS ORDERED: PERCOCET 5-3251 EACH PO (07:57)
--- NOTE | 2016-07-09 08:22 | PN- Neurosurgical ---
Subjective Subjective: Pt without comlaints Objective Vital Signs and I&Os Vital Signs Date Time Temp Pulse Resp B/P Pulse O2 O2 Flow FiO2 Ox Delivery Rate 07/09 92 Room Air 07/09 0000 98.4 64 20 130/60 92 Room Air 07/08 2206 73 150/78 07/08 2205 73 150/68 07/08 1599 92 Nasal 1.0L Cannula 07/08 1599 98.1 62 18 125/55 92 Nasal 1.0L Cannula 07/08 928 74 134/60 07/08 928 76 134/60 Intake & Output 07/09 0000 07/08 0000 Intake Total 100 340 670 200 510 Output Total 500 450 850 480 290 Balance -400 -110 -180 -280 220 Intake, IV 250 270 Intake, Oral 100 340 420 200 240 Number 0 Bowel Movements Output, 100 80 40 Drainage Output, Urine 400 450 850 400 250 Physical Exam: Pt AF, VSS neuro intact NORAH with 100cc last 24hrs serosanguinous ambulating with PT adali po voiding spontaneously plt 77,000 ambulating well with PT around unit with walker Results Last 48 Hours of Labs: Laboratory Tests 07/09 07/08 0500 1505 Hematology CBC w Diff NO MAN DIFF REQ NO MAN DIFF REQ WBC (4.8 - 10.8 /CUMM) 7.3 7.0 RBC (4.20 - 5.40 /CUMM) 3.10 L 2.94 L Hgb (12.0 - 16.0 G/DL) 9.6 L 9.1 L Hct (37 - 47 %) 28.8 L 27.3 L MCV (81.0 - 99.0 FL) 92.7 93.0 MCH (27.0 - 31.0 PG) 31.1 H 31.1 H RDW (11.5 - 14.5 %) 14.6 H 15.0 H Plt Count (130 - 400 /CUMM) 77 L 78 L MPV (7.4 - 10.4 FL) 11.5 H 11.6 H Gran % (42.2 - 75.2 %) 62.3 69.5 Lymphocytes % (20.5 - 51.1 %) 21.0 15.3 L Monocytes % (1.7 - 9.3 %) 11.4 H 10.8 H Eosinophils % (0 - 5 %) 4.8 3.9 Basophils % (0.0 - 2.0 %) 0.5 0.5 Absolute Granulocytes (1.4 - 6.5 /CUMM) 4.6 4.9 Absolute Lymphocytes (1.2 - 3.4 /CUMM) 1.5 1.1 L Absolute Monocytes (0.10 - 0.60 /CUMM) 0.8 H 0.8 H Absolute Eosinophils (0.0 - 0.7 /CUMM) 0.4 0.3 Absolute Basophils (0.0 - 0.2 /CUMM) 0 0 PUBS MCHC (33.0 - 37.0 G/DL) 33.6 33.5 07/08 0500 Chemistry Sodium (137 - 145 mmol/L) 138 Potassium (3.5 - 5.1 mmol/L) 4.0 Chloride (98 - 107 mmol/L) 102 Carbon Dioxide (22 - 30 mmol/L) 28 Anion Gap (5 - 16) 8 BUN (7 - 17 mg/dL) 17 Creatinine (0.5 - 1.0 mg/dL) 0.8 Estimated GFR (>60 ml/min) > 60 BUN/Creatinine Ratio (7 - 25 %) 21.3 Hematology CBC w Diff NO MAN DIFF REQ WBC (4.8 - 10.8 /CUMM) 9.3 RBC (4.20 - 5.40 /CUMM) 3.12 L Hgb (12.0 - 16.0 G/DL) 9.6 L Hct (37 - 47 %) 29.0 L MCV (81.0 - 99.0 FL) 92.8 MCH (27.0 - 31.0 PG) 30.8 RDW (11.5 - 14.5 %) 14.9 H Plt Count (130 - 400 /CUMM) 77 L MPV (7.4 - 10.4 FL) 11.1 H Gran % (42.2 - 75.2 %) 74.0 Lymphocytes % (20.5 - 51.1 %) 13.8 L Monocytes % (1.7 - 9.3 %) 9.6 H Eosinophils % (0 - 5 %) 2.4 Basophils % (0.0 - 2.0 %) 0.2 Absolute Granulocytes (1.4 - 6.5 /CUMM) 6.9 H Absolute Lymphocytes (1.2 - 3.4 /CUMM) 1.3 Absolute Monocytes (0.10 - 0.60 /CUMM) 0.9 H Absolute Eosinophils (0.0 - 0.7 /CUMM) 0.2 Absolute Basophils (0.0 - 0.2 /CUMM) 0 PUBS MCHC (33.0 - 37.0 G/DL) 33.2 Assessment/Plan Assessment/Plan Pt continues to do well s/p lumbar lami and fusion. She remains mildly thrombocytopenic but stable. Receiving vit K and all meds potentially aggravating this have been discontinued. Plan: dc NORAH dc abx home later today dc instructions given fu 2 weeks for francisca needs platelet count rechecked early next week Core Measures/Miscellaneous Martin Catheter Date In: 07/06/16 Venous Thromboembolism VTE Risk Factors: Age > 40, Surgery VTE Contraindications: No Contraindications VTE Prophylaxis Ordered Inpt: Mech & Pharm VTE Diagnosis: No VTE Type: NONE VTE Confirmed by (Test): NONE Beta Ulices Is Beta Ulices a Home Med? No Antibiotics Is Patient on Antibiotics? Yes If Yes: prophylaxis Attending MD Review Statement Attending Statement Attending MD Statement: examined this patient, discuss w/resident/PA/CAPACITY PLANNER, discussed w/nursing
--- NOTE | 2016-07-09 08:28 | Patient Discharge Instructions ---
Discharge Instructions General Discharge Information You were seen/treated for: Low back pain with radiculopathy You had these procedures: Lumbar Laminectomy L3-5 Watch for these problems: Increasing pain, redness, drainage from incision. Numbness or tingling down bilateral legs. Inability to bear weight on bilateral lower extremites. Vomitting for more than 8 hours. Fever greater than 101.5 Do not soak the wound: Yes No bath, but you may shower: Yes Other wound care: Keep wound clean and dry Special Instructions: NO anti-inflammatory medication to be taken. This includes any medication containing aspirin or ibuprofen. Vitamin K to be taken for one additional day, it can be stopped after your dose on wednesday07/10/2016. Diet Continue normal diet: Yes Recommended Diet: Heart Healthy Activity Full Activity/No Limits: No Activity Self Limited: Yes Pounds, do NOT lift more than: 5 Additional ACTIVITY Info: No bending or twisting. Use back brace while walking around Acute Coronary Syndrome Inclusion Criteria At DC or during hospital stay patient has or had the following: ACS DIAGNOSIS No Discharge Core Measures Meds if any: Prescribed or Continued at Discharge Meds if any: NOT Prescribed or Continued at Discharge Congestive Heart Failure Inclusion Criteria At DC or during hospital stay patient has or had the following: CHF DIAGNOSIS No Discharge Core Measures Meds if any: Prescribed or Continued at Discharge Meds if any: NOT Prescribed or Continued at Discharge Cerebrovascular accident Inclusion Criteria At DC or during hospital stay patient has or had the following: CVA/TIA Diagnosis No Discharge Core Measures Meds if any: Prescribed or Continued at Discharge Meds if any: NOT Prescribed or Continued at Discharge Venous thromboembolism Inclusion Criteria VTE Diagnosis No VTE Type NONE VTE Confirmed by (Test) NONE Discharge Core Measures - Per Current guidelines, there needs to be overlap - treatment for the first 5 days of Warfarin therapy. - If discharged on Warfarin prior to 5 days of - overlap therapy, the patient will need to be - assessed for post discharge needs including - *Post discharge parental anticoagulation - *Warfarin and/or parental anticoagulation education - *Follow up date to check INR post discharge At least 5 days overlap therapy as Inpatient No Meds if any: Prescribed or Continued at Discharge Note: Overlap Therapy is Warfarin and Anticoagulant Meds if any: NOT Prescribed or Continued at Discharge
[2016-07-09] MEDS ORDERED: MEPHYTON5 M1 PO (08:36)
--- NOTE | 2016-07-09 08:45 | Surgical Discharge Summary ---
Visit Information Visit Dates Admission Date: 07/06/16 Discharge Date: 07/09/16 History of Present Illness Chief Complaint: Low back pain with radiculopathy Medical History Blood Transfusion Hx: No Neurological: NONE EENT: HX OF EAR SURGERIES Cardiovascular: HTN, HLD Respiratory: NONE Gastrointestinal: GERD Hepatic: NONE Renal: NONE Musculoskeletal: ARTHRITIS Psychiatric: NONE Endocrine: NONE Blood Disorders: NONE Cancer(s): HX OF BREAST CA [employer] DRY CELL/Reproductive: HYSTERECTOMY History of MRSA: No History of VRE: No History of CDIFF: No Isolation History: Standard Surgical History Pertinent Surgical History: TOTAL HYSTERECTOMY TONSILECTOMY (3) C-SECTIONS EAR SURGERIES LUMPECTOMY Psychosocial History Where Do You Live? Home Who Do You Live With? Spouse Services at Home: None What is Your Primary Language? Liberian Review of Systems: see H&P Hospital Course Course Attending Physician: BERNARDO MARIN,REINIER Fournier Primary Care Physician: SWETHA MARIN,LAUREN Panda Hospital Course: Admitted to hospital for elective lumbar laminectomy 07/06/2016. Tolerated procedure well. Vital signs were stable and within normal limits. Pain was controlled with po pain medication. Diet was advanced and tolerated. NORAH drain was removed post op day 3. Patient was evaluated and treated by physical therapy. Patient was deemed appropriate for discharge to home with home health services. Allergies: Coded Allergies: Penicillins (Intermediate, RASH 07/02/16) STATINS (Intermediate, MYALGIAS 07/02/16) Sulfa (Sulfonamide Antibiotics) (Intermediate, RASH 07/02/16) gabapentin (Intermediate, RASH 07/02/16) pregabalin (From LYRICA) (Intermediate, SWELLING 07/02/16) aspirin (07/02/16) clindamycin (07/02/16) tramadol (Severe, HEADACHE 07/02/16) Disposition Summary Disposition Principal Diagnosis: HNP with radiculopathy L3-L5 Additional Diagnosis: none Discharge Disposition: home health services Discharge Instructions General Discharge Information Code Status: Full Code Patient's Diet: Heart healthy, advance as tolerated Patient's Activity: Weightbear as tolearated, no bending or twisting. No lifting greater than 5 pounds. NO nsaid use. CBC to be drawn in one week from date of surgery Follow-Up Instructions/Appts: See Dr. Medina in 2 weeks from date of surgery. Please call to schedule or confirm appointment. Please have blood drawn on Wednesday07/13/2016 to assess CBC. Medications at Discharge Discharge Medications: Stop taking the following medications: Ibuprofen (Ibuprofen) 600 MG TABLET ORAL THREE TIMES DAILY Continue taking these medications: Polyethylene Glycol 3350 (Miralax) 17 GRAM POWD.PACK 1 Packet ORAL DAILY as needed for GI Instructions: dissolve in water Comments: DOCUMENTED PER CMR DURING PRE-SX INTERVIEW Tamoxifen Citrate (Tamoxifen Citrate) 20 MG TABLET 1 Tablet ORAL DAILY Comments: DOCUMENTED PER CMR DURING PRE-SX INTERVIEW Esomeprazole (Nexium) 40 MG CAPSULE.DR 1 Capsule ORAL DAILY Comments: DOCUMENTED PER CMR DURING PRE-SX INTERVIEW Amlodipine Besylate (Norvasc) 5 MG TABLET 1 Tablet ORAL TWICE DAILY Comments: DOCUMENTED PER CMR DURING PRE-SX INTERVIEW Furosemide (Lasix) 20 MG TABLET 1 Tablet ORAL DAILY Comments: DOCUMENTED PER CMR DURING PRE-SX INTERVIEW Paroxetine Mesylate (Brisdelle) 7.5 MG CAPSULE 1 Capsule ORAL DAILY Comments: DOCUMENTED PER CMR DURING PRE-SX INTERVIEW Rosuvastatin Calcium (Crestor) 40 MG TABLET 1 Tablet ORAL Every night Comments: DOCUMENTED PER CMR DURING PRE-SX INTERVIEW Mometasone Furoate (Nasonex) 50 MCG SPRAY.PUMP Unknown Dose In the nose As Directed as needed for NASAL CONGESTION Comments: DOCUMENTED PER CMR DURING PRE-SX INTERVIEW Calcium Carbonate/Vitamin D3 (Calcium 500 + D Tablet) 500 MG-400 TABLET 1 Tablet ORAL DAILY Comments: DOCUMENTED PER CMR DURING PRE-SX INTERVIEW Ergocalciferol (Vitamin D2) (Vitamin D) 400 UNIT TABLET 1 Tablet ORAL DAILY Comments: DOCUMENTED PER CMR DURING PRE-SX INTERVIEW Ubidecarenone (Co Q-10) (Unknown Strength) CAPSULE 1 Capsule ORAL DAILY Comments: DOCUMENTED PER CMR DURING PRE-SX INTERVIEW Carvedilol (Carvedilol) 12.5 MG TABLET 1 Tablet ORAL TWICE DAILY Comments: DOCUMENTED PER CMR DURING PRE-SX INTERVIEW Potassium Chloride (Potassium Chloride) 20 MEQ TAB.ER.PRT 1 Tablet ORAL DAILY Comments: DOCUMENTED PER CMR DURING PRE-SX INTERVIEW Start taking the following new medications: Oxycodone HCl/Acetaminophen (Percocet 5-325 MG Tablet) 5 MG-325 MG TABLET 1-2 Tablet ORAL Q4-6H as needed for PAIN Qty = 36 No Refills Phytonadione (Mephyton) 5 MG TABLET 1 Tablet ORAL GIVE ONCE Qty = 1 No Refills Instructions: HOME DOSE 07/10/2016 ONLY
[2016-07-09 09:10] VITALS: BP 118/64
[2016-07-09] MEDS ORDERED: RW (09:39)
== END 2016-07-09 14:10 | disposition home health service (06) | DRG 460 ==
LOC: ENPENDDIS 01:43 → SDA 01:43 → CRI 01:43
PROVIDERS: Physician Assistant; Physician Assistant Surgical; ADMIT Neurological Surgery
PROC: 0ST20ZZ Resection of Lumbar Vertebral Disc, Open Approach (ICD-10-PCS; principal; 2016-07-06)
PROC: 0SG10AJ Fusion of 2 or more Lumbar Vertebral Joints with Interbody Fusion Device, Posterior Approach, Anterior Column, Open Approach (ICD-10-PCS; 2016-07-06)
PROC: 0QB20ZX Excision of Right Pelvic Bone, Open Approach, Diagnostic (ICD-10-PCS; 2016-07-06)
PROC: 0SB20ZZ Excision of Lumbar Vertebral Disc, Open Approach (ICD-10-PCS; 2016-07-06)
DX: M48.06 Spinal stenosis, lumbar region (principal); I44.7 Left bundle-branch block, unspecified; C50.919 Malignant neoplasm of unspecified site of unspecified female breast; I10 Essential (primary) hypertension; K22.70 Barrett's esophagus without dysplasia; M71.38 Other bursal cyst, other site; E78.5 Hyperlipidemia, unspecified; K21.9 Gastro-esophageal reflux disease without esophagitis
CPT/HCPCS: CCU; 36415; 72020; 72110; 82436; 87086; 88184; 88261; 88304; 88305; 88313; 93005; 93010; 97116-GO; 97161-GP; 97530-GO; C1713; EXP; J1100; J1170; J1644; J2405; J3370; J7040